=== PATIENT | male | born 1985 | race Caucasian/White ===

== ENCOUNTER 2016-11-22 19:33 | Emergency (ER) | payer MEDICAID ==
[~2016-11-22] VITALS: Ht 177.8 cm; Wt 82.0 kg
[~2016-11-22 19:33] MED LIST: BUPR100CR PO; CYCL1TAB29 PO; IBUP800T23 PO; LURA40 PO; MELO7.5T4 PO; ORPH100T99 PO; SUBO2MIS SL
[2016-11-22 20:07] VITALS: BP 123/83; PULSE 85; RESP 16; TEMP 98; O2SAT 98
[2016-11-22 20:53] LABS: AUTOMATED NEUTROPHIL # 4.4 TH/MM3 (1.8-7.7); BASOPHIL # 0.1 TH/MM3 (0-0.2); BASOPHIL % 0.8 % (0.0-2.0); EOSINOPHIL # 0.1 TH/MM3 (0-0.4); EOSINOPHIL % 1.6 % (0.0-4.0); HEMO FLAGS DIFF FINAL; LYMPH % 37.2 % (9.0-44.0); MEAN CORPUSCULAR HEMOGLOBIN 27.2 PG (27.0-34.0); MEAN CORPUSCULAR HGB CONC 33.6 % (32.0-36.0); MONO % 5.9 % (0.0-8.0); NEUT % 54.5 % (16.0-70.0); PLATELET COUNT 234 TH/MM3 (150-450); RED BLOOD COUNT 5.19 MIL/MM3 (4.50-5.90); WHITE BLOOD COUNT 8.1 TH/MM3 (4.0-11.0)
--- NOTE | 2016-11-22 20:58 | PD ---
HPI Chief Complaint: Psychiatric Symptoms Time Seen by Provider: 20:53 Travel History International Travel<30 days: No Contact w/Intl Traveler<30days: No Traveled to known affect area: No History of Present Illness HPI 31 yo female here for psychiatric evaluation. patient was Acharya acted by police after apparently she given Augmentin with the mother and girlfriend who were concerned because patient has been abusing drugs. Patient made a suicidal comment and she was brought here for evaluation of this. He states that he uses a lot of. Per patient he had a lot of money this week and got dilaudid. He denies any fevers chills or sweats. No other substance abuse. No homicidal IDEATION. PER PATIENT HE IS NEVER BEING ACHARYA ACTED BEFORE. TAKES NO MEDICATIONS. SYMPTOMS HAVE BEEN WORSENING since using this weekend. PFSH Past Medical History Hx Anticoagulant Therapy: No Cardiovascular Problems: No Chemotherapy: No Cerebrovascular Accident: No Diabetes: No Hepatitis: Yes (B & C) Respiratory: No Past Surgical History Other Surgery: Yes (PILONIDAL CYST EXCISION) Social History Alcohol Use: No Tobacco Use: Yes Substance Use: Yes (IV DRUG USE--LAST TIME 02/27/15) Allergies-Medications (Allergen,Severity, Reaction): Coded Allergies: No Known Allergies (Unverified , 05/07/16) Reported Meds & Prescriptions Reported Meds & Active Scripts Active Orphenadrine CR (Orphenadrine Citrate) 100 Mg Tab 100 Mg PO AT BED TIME. Meloxicam 7.5 Mg Tab 7.5 Mg PO BID Flexeril (Cyclobenzaprine HCl) 10 Mg Tab 10 Mg PO TID PRN Ibuprofen 800 Mg Tab 800 Mg PO Q6HR PRN Reported Wellbutrin SR 12 HR (Bupropion HCl) 100 Mg Tab 100 Mg PO Q12HR Suboxone Sublingual Film (Buprenorphine-Naloxone Sublingual Film) 2-0.5 Mg Film 1 Film SL pt states he gets "off the street,doses self" Latuda (Lurasidone) 40 Mg Tab 40 Mg PO DAILY Review of Systems Except as stated in HPI: all other systems reviewed are Neg Physical Exam Narrative GENERAL: SKIN: Warm and dry. HEAD: Atraumatic. Normocephalic. EYES: Pupils equal and round. No scleral icterus. No injection or drainage. ENT: No nasal bleeding or discharge. Mucous membranes pink and moist. Tongue is midline. No uvula deviation. NECK: Trachea midline. No JVD. CARDIOVASCULAR: Regular rate and rhythm. RESPIRATORY: No accessory muscle use. Clear to auscultation. Breath sounds equal bilaterally. GASTROINTESTINAL: Abdomen soft, non-tender, nondistended. Hepatic and splenic margins not palpable. MUSCULOSKELETAL: Extremities without clubbing, cyanosis, or edema. No obvious deformities. Full range of motion of the upper and lower extremities bilaterally. 2+ pulses bilaterally. NEUROLOGICAL: Awake and alert. No obvious cranial nerve deficits. Motor grossly within normal limits. Five out of 5 muscle strength in the arms and legs. Normal speech. PSYCHIATRIC: Appropriate mood and affect; insight and judgment normal. Data Data Last Documented VS Vital Signs Date Time Temp Pulse Resp B/P Pulse Ox O2 Delivery O2 Flow Rate FiO2 11/22/16 20:07 98.0 85 16 123/83 98 Room Air Orders Complete Blood Count With Diff (11/22/16 19:36) Comprehensive Metabolic Panel (11/22/16 19:36) Psych Screen (11/22/16 19:36) Drug Screen, Random Urine (11/22/16 19:36) Alcohol (Ethanol) (11/22/16 19:36) Salicylates (Aspirin) (11/22/16 19:36) Tylenol (Acetaminophen) (11/22/16 19:36) MDM Medical Decision Making Medical Screen Exam Complete: Yes Emergency Medical Condition: Yes Medical Record Reviewed: Yes Differential Diagnosis Depression versus suicidal ideation versus anxiety versus adjustment disorder versus mood disorder versus bipolar disorder versus schizophrenia versus paranoid disorder versus psychosis versus substance abuse versus alcohol abuse versus alcohol induced psychosis versus homicidality addition versus cutting versus personality disorder Narrative Course 31-year-old male that presents to the ED for evaluation of psych. Patient was properly examined and was found to have signs and symptoms consistent with appears to be depression. Patient had lab work ordered. Patient will be medically clear. Okay to be seen by psych. Mental health screening was discussed with the patient. Diagnosis Primary Impression: Depression Qualified Code: F32.1 - Moderate single current episode of major depressive disorder Additional Impression: Substance abuse Hernandez Iglesias Nov 22, 2016 20:58
[2016-11-22 21:14] LABS: ANION GAP 9 MEQ/L (5-15); BICARBONATE 29.4 MEQ/L (21.0-32.0); BLOOD UREA NITROGEN 13 MG/DL (7-18); CHLORIDE 101 MEQ/L (98-107); GLOMERULAR FILTRATION RATE 92 ML/MIN (>89); POTASSIUM 3.8 MEQ/L (3.5-5.1); SODIUM (NA) 139 MEQ/L (136-145)
[2016-11-22 21:15] LABS: AST (GOT) 23 U/L (15-37)
[2016-11-22 21:18] LABS: ACETAMINOPHEN LESS THAN 2.0 MCG/ML (10.0-30.0); ALKALINE PHOSPHATASE 74 U/L (45-117); ALT (GPT) 44 U/L (12-78); TOTAL BILIRUBIN ADULT 0.3 MG/DL (0.2-1.0)
[2016-11-22 22:35] VITALS: BP 127/70; PULSE 74; RESP 18; O2SAT 98
[2016-11-22 22:43] LABS: AMPHETAMINE, URINE NEG (NEG); BARBITURATES, URINE NEG (NEG); COCAINE, URINE POS (NEG)
[2016-11-23 02:04] VITALS: BP 121/60; PULSE 72; RESP 16; O2SAT 98
[2016-11-23 06:00] VITALS: BP 131/74; PULSE 51; RESP 18; O2SAT 97
[2016-11-23] MEDS ORDERED: NICOTINE 21 MG/24 HR PATCH T-DERMAL ONE (08:15)
== END 2016-11-23 10:47 ==
LOC: NEDAMB 19:33 → NEPJ 11-23 10:47
DX: F32.1 Major depressive disorder, single episode, moderate (principal); F19.10 Other psychoactive substance abuse, uncomplicated; Z72.0 Tobacco use
CPT/HCPCS: 80053; 80307; 85025; 99285